=== PATIENT | female | born 2005 | race Caucasian/White ===

== ENCOUNTER 2023-11-13 21:43 | Emergency (ER) | payer BC, OTHER ==
[~2023-11-13] VITALS: Ht 154.9 cm; Wt 98.0 kg
[2023-11-13 22:35] VITALS: BP 129/71; PULSE 112; RESP 20; TEMP 98.1; O2SAT 99
[2023-11-14] MEDS: KETOROLAC 30 MG/ML VIAL IM ONE (01:14)
[2023-11-14] MEDS: ONDANSETRON 4 MG ODT PO ONE (01:14)
[2023-11-14] MEDS: LIDOCAINE 5% 1 EA PATCH TP ONE (01:15)
[2023-11-14 01:21] LABS: BASOPHILS % (AUTO) 0.2 % (0.0-2.0); HEMATOCRIT 41.5 % (36-48); HEMOGLOBIN 14.1 g/dL (12.0-16.0); LYMPHOCYTES # (AUTO) 0.8 K/uL (2.5-16.5); LYMPHOCYTES % (AUTO) 6.3 % (20.5-51.1); MEAN CORPUSCULAR HEMOGLOBIN 29 pg (27-31); MEAN CORPUSCULAR HGB CONC 34 g/dL (33-37); MEAN CORPUSCULAR VOLUME 86.5 fL (80-94); MONOCYTES # (AUTO) 0.4 K/uL (0.8-1.0); NEUTROPHILS # (AUTO) 10.9 K/uL (1.8-7.7); NEUTROPHILS % (AUTO) 90.5 % (42.2-75.2); PLATELET COUNT (AUTO) 290 K/uL (140-450); RED BLOOD CELL COUNT(AUTO) 4.79 MIL/uL (4.20-5.40); RED CELL DISTRIBUTION WIDTH 13.7 % (11.6-13.7)
[2023-11-14 01:31] LABS: ANION GAP 14.6 (8-16); CALCIUM 8.5 mg/dL (8.5-10.1); CARBON DIOXIDE 24.9 mmol/L (21-32); CREATININE 0.8 mg/dL (0.6-1.3); POTASSIUM 3.5 mmol/L (3.5-5.1)
[2023-11-14 01:37] LABS: ALBUMIN 3.6 g/dL (3.4-5.0); BILIRUBIN,DIRECT 0.2 mg/dL (0.0-0.3); TOTAL BILIRUBIN 1.4 mg/dL (0.0-1.0); TOTAL PROTEIN, SERUM 7.3 g/dL (6.4-8.2)
[2023-11-14] MEDS ORDERED: ONDA-188 SL (01:55)
[2023-11-14 02:08] VITALS: BP 120/70; PULSE 100; RESP 20; TEMP 97.5; O2SAT 99
== END 2023-11-14 02:08 | disposition home or self-care (01) ==
LOC: MED 21:43
DX: S29.012A Strain of muscle and tendon of back wall of thorax, initial encounter (principal); R11.10 Vomiting, unspecified; R10.9 Unspecified abdominal pain; Z79.899 Other long term (current) drug therapy; X58.XXXA Exposure to other specified factors, initial encounter; Y92.89 Other specified places as the place of occurrence of the external cause; Y93.89 Activity, other specified; Y99.8 Other external cause status
CPT/HCPCS: 36415; 71045; 80048; 80076; 81025; 83690; 85025; 96372; 99285; J1885; Q0162